=== PATIENT | male | born 1950 | race African-American/Black ===

== ENCOUNTER 2018-12-16 10:02 | Day surgery (SDC) | payer OTHER ==
[2018-12-09 13:20] VITALS: BMI 29.5
[2018-12-16] MEDS ORDERED: PHENYLEPHRINE 2.5% OPHTH SOLN 15 ML BOTTLE ONE (10:45)
[2018-12-16] MEDS ORDERED: CYCLOPENTOLATE HCL 1% OPHTH SOLN 2 ML BOTTLE ONE (10:45)
[2018-12-16] MEDS ORDERED: KETOROLAC TROMETHAMINE 0.5% EYE DROP 1 DROP DROPS ONE (10:45)
[2018-12-16] MEDS ORDERED: OFLOXACIN 0.3% OPHTHALMIC SOLUTION 5 ML BOTTLE ONE (10:45)
[2018-12-16] MEDS ORDERED: TROPICAMIDE 1% OPHTH SOLN 15 ML BOTTLE ONE (10:45)
[2018-12-16] MEDS: OFLOXACIN 0.3% OPHTHALMIC SOLUTION 5 ML BOTTLE OS SCH ×5 (11:18→12:05)
[2018-12-16] MEDS: CYCLOPENTOLATE HCL 1% OPHTH SOLN 2 ML BOTTLE OS SCH ×5 (11:18→12:05)
[2018-12-16] MEDS: KETOROLAC TROMETHAMINE 0.5% EYE DROP 1 DROP DROPS OS SCH ×5 (11:18→12:05)
[2018-12-16] MEDS: PHENYLEPHRINE 2.5% OPHTH SOLN 15 ML BOTTLE OS SCH ×5 (11:18→12:05)
[2018-12-16] MEDS: TROPICAMIDE 1% OPHTH SOLN 15 ML BOTTLE OS SCH ×5 (11:19→12:05)
[2018-12-16] MEDS ORDERED: MIDAZOLAM HCL 2 MG/2 ML SINGLE DOSE VIAL ONE ×2 (13:49→14:16)
[2018-12-16] MEDS ORDERED: NEO/POLYMYX B SULF/DEXAMETH OPHTHALMIC 5ML BOTTLE ONE (13:50)
[2018-12-16] MEDS ORDERED: TETRACAINE 0.5% OPHTH SOLN 2 ML BOTTLE ONE (13:50)
[2018-12-16] MEDS ORDERED: EPI-SHUGARCAINE (EPINEPHRINE 0.025% & LIDOCAINE-PF 0.75%) 4ML ONE (13:50)
[2018-12-16] MEDS ORDERED: POVIDONE-IODINE 5% OPHTHALMIC PREP 30 ML SOLUTION ONE (13:50)
[2018-12-16] MEDS ORDERED: BETAXOLOL HCL 0.25% OPHTHALMIC 10 ML DROPSBTL ONE (13:50)
[2018-12-16] MEDS ORDERED: BACITRACIN/POLYMYXIN OPH OINT 3.5 GM TUBE ONE (13:50)
[2018-12-16] MEDS ORDERED: ACETYLCHOLINE 1:100 INTRA-OCUL 20 MG/2 ML KIT ONE (13:50)
[2018-12-16] MEDS ORDERED: KETOROLAC TROMETHAMINE 30 MG/1 ML VIAL ONE (14:16)
[2018-12-16] MEDS ORDERED: ACETAMINOPHEN 325 MG TABLET (FP) PO PRN (14:56)
[2018-12-16 15:19] VITALS: TEMP 98.5
[2018-12-16 15:49] VITALS: BP 130/82; PULSE 64
--- NOTE | 2018-12-16 16:28 | OP ---
DATE OF OPERATION: 12/16/2018 AGE: [age] years old. SEX: Male. PREOPERATIVE DIAGNOSIS: Cataract, left eye. POSTOPERATIVE DIAGNOSIS: Cataract, left eye, toric lens. PROCEDURE: Cataract extraction via phacoemulsification with insertion of posterior chamber lens implant, left eye, toric lens. SURGEON: Judah Echols MD FLATBED TRUCK DRIVER: Ruby Tatum MD ANESTHESIA: Topical with sedation. ESTIMATED BLOOD LOSS: Less than 1 mL. COMPLICATIONS: None. SPECIMENS: None. PROCEDURE: The patient was identified in the holding area. After all risks, benefits and alternatives were explained to the patient, informed consent was obtained. The left eye was marked with a marking pen. The patient then entered the operating room on an eye stretcher. After a formal timeout was performed, topical tetracaine eyedrops were instilled onto the left eye. The patient was then instructed to sit up and look straight ahead and the left eye was marked using a toric marking pen and a toric marker for the cardinal axis of astigmatism. The patient was then asked to lie back down and the left eye was prepped and draped in the usual sterile fashion. An eyelid speculum was placed beneath the eyelids of the left eye. Then the axis of astigmatism was marked using a toric dialysis biomed technician and a toric marking pen, and the axis of astigmatism was the cornea, which was noted to be 175 degrees. Then an infratemporal paracentesis incision was created using a 15-degree blade. Topical preservative-free epinephrine and preservative-free lidocaine was then injected into the anterior chamber. Viscoelastic was then injected into the anterior chamber. A supratemporal incision was created using a 2.4-mm keratome blade. A 360-degree continuous curvilinear capsulorrhexis was then created using bent cystotome and Utrata forceps. Hydrodissection was performed using balanced saline solution on a cannula. Phacoemulsification was introduced to disassemble and remove the nucleus in its entirety. Irrigation/aspiration was then used to remove any remaining cortical material from the eye. The capsular bag was reformed using viscoelastic. An Luiisto model SN6AT4 with a power of 21.0 diopters, serial number [id number] was inspected and found to be defect free and injected into the capsular bag. Irrigation/aspiration was then used to remove any remaining viscoelastic from the eye. The toric lens was rotated so that the axis of astigmatism on the optic matched the axis of astigmatism on the cornea, which was noted to 175 degrees. Topical Miochol and intracameral Miochol was then given and the pupil came down and was round. All wounds were hydrated with balanced saline solution, noted to be watertight. Of note, irrigation/aspiration was used prior to Miochol injection to remove any remaining viscoelastic. Then, again, all wounds were hydrated with balanced saline solution and noted to be watertight. The lens was perfectly centered in the capsular bag with the axis of astigmatism axis at 175 degrees. The anterior chamber was deep. There was a red reflex present and the eye had adequate pressure. Topical antibiotic eyedrops and ointment was then administered to the left eye. The eyelid speculum was removed from the left eye. The left eye was shielded. The patient tolerated the procedure well and left the operating room in stable condition, to follow up in the eye clinic tomorrow morning at 10. Joi [id number]
== END 2018-12-16 15:53 | disposition home or self-care (01) ==
LOC: FASU 10:02
PROVIDERS: ATTEND Ophthalmology
PROC: 08RK3JZ Replacement of Left Lens with Synthetic Substitute, Percutaneous Approach (ICD-10-PCS; principal; 2018-12-16 14:28)
DX: H26.9 Unspecified cataract (principal)

== ENCOUNTER 2018-12-30 08:22 | Day surgery (SDC) | payer OTHER ==
[2018-12-25 12:46] VITALS: BMI 29.5
[2018-12-30] MEDS ORDERED: KETOROLAC TROMETHAMINE 0.5% EYE DROP 1 DROP DROPS ONE (09:26)
[2018-12-30] MEDS ORDERED: TROPICAMIDE 1% OPHTH SOLN 15 ML BOTTLE ONE (09:26)
[2018-12-30] MEDS ORDERED: OFLOXACIN 0.3% OPHTHALMIC SOLUTION 5 ML BOTTLE ONE (09:26)
[2018-12-30] MEDS ORDERED: CYCLOPENTOLATE HCL 1% OPHTH SOLN 2 ML BOTTLE ONE (09:26)
[2018-12-30] MEDS ORDERED: PHENYLEPHRINE 2.5% OPHTH SOLN 15 ML BOTTLE ONE (09:27)
[2018-12-30] MEDS: PHENYLEPHRINE 2.5% OPHTH SOLN 15 ML BOTTLE OD SCH ×5 (09:55→10:15)
[2018-12-30] MEDS: CYCLOPENTOLATE HCL 1% OPHTH SOLN 2 ML BOTTLE OD SCH ×5 (09:55→10:15)
[2018-12-30] MEDS: OFLOXACIN 0.3% OPHTHALMIC SOLUTION 5 ML BOTTLE OD SCH ×5 (09:55→10:15)
[2018-12-30] MEDS: TROPICAMIDE 1% OPHTH SOLN 15 ML BOTTLE OD SCH ×5 (09:55→10:15)
[2018-12-30] MEDS: KETOROLAC TROMETHAMINE 0.5% EYE DROP 1 DROP DROPS OD SCH ×5 (09:55→10:15)
[2018-12-30] MEDS ORDERED: EPINEPHrine/PF 1 MG/1 ML (1:1,000) AMPULE ONE (10:58)
[2018-12-30] MEDS ORDERED: POVIDONE-IODINE 5% OPHTHALMIC PREP 30 ML SOLUTION ONE (10:59)
[2018-12-30] MEDS ORDERED: EPI-SHUGARCAINE (EPINEPHRINE 0.025% & LIDOCAINE-PF 0.75%) 4ML ONE (10:59)
[2018-12-30] MEDS ORDERED: ACETYLCHOLINE 1:100 INTRA-OCUL 20 MG/2 ML KIT ONE (10:59)
[2018-12-30] MEDS ORDERED: MIDAZOLAM HCL 2 MG/2 ML SINGLE DOSE VIAL ONE (11:15)
[2018-12-30] MEDS ORDERED: ACETAMINOPHEN 325 MG TABLET (FP) PO PRN (12:18)
[2018-12-30 13:04] VITALS: BP 136/78; PULSE 62; TEMP 97.6
--- NOTE | 2018-12-30 20:51 | OP ---
DATE OF OPERATION: 12/30/2018 AGE: [age] years old. SEX: Male. PREOPERATIVE DIAGNOSIS: Cataract, right eye. POSTOPERATIVE DIAGNOSIS: Cataract, right eye. PROCEDURE: Cataract extraction via phacoemulsification with insertion of posterior chamber lens implant, right eye, toric lens. SURGEON: Judah Ryan MD ROLLER SETTER: Ruby Tatum MD ANESTHESIA: Topical with sedation. ESTIMATED BLOOD LOSS: Less than 1 mL. COMPLICATIONS: None. SPECIMENS: None. PROCEDURE: The patient was identified in the holding area. After all risks, benefits and alternatives were explained to the patient, informed consent was obtained. The right eye was marked with a marking pen. The patient then entered the operating room on an eye stretcher, and after a formal timeout was performed, topical tetracaine eyedrops were instilled onto the right eye. The patient was then instructed to sit up and look straight ahead, and the cardinal axis of astigmatism were marked using a toric bubble marker and toric marking pen. Then the patient was instructed to lie back down, and the right eye was prepped and draped in the usual sterile fashion. An eyelid speculum was placed beneath the eyelids of the right eye. Then, the axis of astigmatism was marked onto the right eye, which was noted to be around 5 degrees. Then, an infratemporal paracentesis incision was created using a 15-degree blade. Topical preservative-free epinephrine and preservative-free lidocaine was then injected into the anterior chamber. Viscoelastic was then injected into the anterior chamber. A 2.4 mm keratome blade was then used used to make a supratemporal incision. A 360-degree continuous curvilinear capsulorrhexis was then created using bent cystotome and Utrata forceps. Hydrodissection was performed using balanced saline solution on a cannula. Phacoemulsification was introduced to disassemble and remove the nucleus in its entirety. Irrigation/aspiration was then used to remove any remaining cortical material from the eye. The capsular bag was reformed using viscoelastic. An Luisito model SN6AT3 with a power of 20.5 diopters, serial number [id number] was inspected and found to be defect free and injected in capsular bag. Irrigation/aspiration was then used to remove any remaining viscoelastic from the eye. The intraocular lens was rotated so that the axis of astigmatism on the optic matched the axis of astigmatism on the cornea, which was around 5 degrees. Then, intracameral Miochol was then injected and the pupil came down and was round. All wounds were hydrated with balanced saline solution, noted to be watertight. There was a red reflex present. The anterior chamber was deep. The lens was perfectly centered in the capsular bag with the axis of astigmatism at 5 degrees and the eye had an adequate pressure. Topical antibiotic eyedrops and ointment were then administered to the right eye. The eyelid speculum was removed from the right eye. The right eye was shielded. The patient tolerated the procedure well, left the operating room in stable condition, to follow up in the eye clinic tomorrow morning at 10. JUDAH RYAN M.D. [id number]
== END 2018-12-30 13:04 | disposition home or self-care (01) ==
LOC: FASU 08:22
PROVIDERS: ATTEND Ophthalmology
PROC: 08RJ3JZ Replacement of Right Lens with Synthetic Substitute, Percutaneous Approach (ICD-10-PCS; principal; 2018-12-30 11:31)
DX: H26.9 Unspecified cataract (principal)